=== PATIENT | male | born 1940 | race Caucasian/White ===

== ENCOUNTER 2023-03-18 11:54 | Outpatient (CLI) | payer MEDICARE | END 2023-03-18 11:55 | disposition home or self-care (01) | LOC: CSHCT 11:54 | PROVIDERS: ATTEND Internal Medicine Critical Care Medicine | DX: J43.9 Emphysema, unspecified (principal); R91.8 Other nonspecific abnormal finding of lung field; J98.11 Atelectasis | CPT/HCPCS: 71250; 94060; 94664; 94726; 94729; 94760 ==